=== PATIENT | female | born 1980 | race Caucasian/White ===

== ENCOUNTER 2020-10-06 09:26 | Emergency (ER) | payer BC, MEDICAID ==
[2020-10-06] MEDS ORDERED: Take Home: Amoxicillin/Clavulanate K 875-125 MG Tab, 2 Tab Pack PO ONE (09:44)
--- NOTE | 2020-10-06 11:11 | EDM.PDOC ---
ED HPI GENERAL MEDICAL PROBLEM - General Chief Complaint: ENT Problem Time Seen by Provider: 10/06/20 09:30 Source of Information: Reports: Patient History Limitations: Reports: No Limitations - History of Present Illness INITIAL COMMENTS - FREE TEXT/NARRATIVE: Pt. presents to ER with complaints of L lower jaw pain/swelling. Pt. states that she had fractured her jaw previously and is having problems with recurrent infection in the jaw. She is scheduled to undergo surgery for this in the near future. Denies any fever or chills. No chest pain or shortness of breath. Pt. states that she has not had any problems with swallowing or managing her oral secretions. She states that she was placed on augmentin last time for this and it resolved. Onset Date: 10/03/20 Location: Reports: Head, Face Quality: Reports: Ache, Throbbing Severity: Moderate Left Lower Oral/Mouth Pain Score (Numeric/FACES): 6 - Related Data Allergies Allergy/AdvReac Type Severity Reaction Status Date / Time No Known Allergies Allergy Verified 10/06/20 09:47 Home Meds: Home Meds DULoxetine [Cymbalta] 60 mg PO DAILY 10/06/20 [History] Levonorgestrel/Ethin.estradiol [Falmina-28 Tablet] 1 each PO DAILY 10/06/20 [History] Propranolol [Inderal LA 24 Hr] 60 mg PO DAILY 10/06/20 [History] Social & Family History - Tobacco Use Tobacco Use Status *Q: Current Every Day Tobacco User Years of Tobacco use: 10 Packs/Tins Daily: 1 - Recreational Drug Use Recreational Drug Use: Yes Recreational Drug Type: Reports: Marijuana/Hashish Recreational Drug Use Frequency: Daily ED ROS GENERAL - Review of Systems Review Of Systems: See Below Constitutional: Reports: No Symptoms HEENT: Reports: Other (L lower inferior jaw swelling) ED EXAM, GENERAL - Physical Exam Exam: See Below Exam Limited By: No Limitations General Appearance: Alert, WD/WN, No Apparent Distress Throat/Mouth: Normal Lips, Normal Teeth, Normal Gums, Normal Oropharynx, Normal Voice, No Airway Compromise, Other (edematous area to L inferior lower jaw.) Respiratory/Chest: No Respiratory Distress. No: Wheezing, Stridor Course - Vital Signs Last Recorded V/S: Last Vital Signs Temp 36.9 C 10/06/20 09:30 Pulse 79 10/06/20 09:30 Resp 18 10/06/20 09:30 BP 108/71 10/06/20 09:30 Pulse Ox 98 10/06/20 09:30 - Orders/Labs/Meds Meds: Medications Discontinued Medications Generic Name Dose Route Start Last Admin Trade Name Alyssa PRN Reason Stop Dose Admin Amoxicillin/Clavulanate Potassium 1 packet 10/06/20 09:44 10/06/20 09:53 Take Home: Amoxicillin/Clavulanate K 875-125 Mg Tab, 2 Tab Pack PO 10/06/20 09:45 1 packet ONETIME ONE Administration Departure - Departure Time of Disposition: 09:45 Disposition: Home, Self-Care 01 Clinical Impression: Chronic abscess of jaw - Discharge Information Instructions: Amoxicillin; Clavulanic Acid Tablets, Probiotics Referrals: Emma Yoder MD [Primary Care Provider] - Forms: ED Department Discharge Additional Instructions: Augmentin 875mg 1 twice daily for 10 days Follow-up with oral surgeon [facility] Sepsis Event Note (ED) - Evaluation Sepsis Screening Result: No Definite Risk - Focused Exam Vital Signs: Vital Signs Temp Pulse Resp BP Pulse Ox 10/06/20 09:30 36.9 C 79 18 108/71 98 - Problem List Review Problem List Initiated/Reviewed/Updated: Yes - Assessment/Plan Plan: Pt. is not sure of the entire infection was completely resolved, but states that she swelling did get better. Pt. was started on Augmentin 875mg 1 twice daily, and advised to follow-up with PCP/surgeon in the next several days. She does not want any pain medication. Advised to return to ER if she notices increased swelling, troubles breathing, swallowing.
== END 2020-10-06 09:54 | disposition home or self-care (01) ==
LOC: VM.ED 09:26
DX: M27.2 Inflammatory conditions of jaws (principal); Z72.0 Tobacco use
CPT/HCPCS: 99283; A9270